=== PATIENT | male | born 1980 | race Caucasian/White ===

== ENCOUNTER 2022-01-09 10:33 | Day surgery (SDC) | payer OTHER ==
[2022-01-07 12:51] VITALS: BMI 28.8
[~2022-01-09 10:33] MED LIST: EPINEPHrine 0.3 MG in Ophthalmic Irrigation Solution 500 ML IRR SCH
[2022-01-09] MEDS ORDERED: Cyclopentolate W/ Phenylephrin 40 DROP/2 ML BOT ONE (10:50)
[2022-01-09] MEDS ORDERED: Phenylephrine 2.5% Ophth Soln 5 ML BOT ONE (10:58)
[2022-01-09] MEDS ORDERED: Cyclopentolate 1% Opth Drop 2 ML BOT ONE (11:04)
[2022-01-09] MEDS ORDERED: Midazolam HCl 2 mg/2 ml Vial ONE (12:22)
[2022-01-09] MEDS ORDERED: fentaNYL Citrate/PF 100 MCG/2 ML SYRINGE ONE (12:23)
[2022-01-09] MEDS ORDERED: Maxitrol 0.1% Opth Oint 3.5 GM TUBE ONE (12:30)
[2022-01-09] MEDS ORDERED: Glycopyrrolate 0.2 MG/ML 5 ML SYRINGE ONE (12:30)
[2022-01-09] MEDS ORDERED: CEFAZOLIN 1 GM VIAL ONE (12:30)
[2022-01-09] MEDS ORDERED: Bupivacaine 0.75% 10 ML VIAL ONE (12:30)
[2022-01-09] MEDS ORDERED: Dexamethasone 20 MG/5 ML VIAL ONE (12:30)
[2022-01-09] MEDS ORDERED: Triamcinolone 40 MG/ML VIAL ONE (12:30)
[2022-01-09] MEDS ORDERED: Lidocaine 4% PF 5 ML AMP ONE (12:30)
[2022-01-09] MEDS ORDERED: PROPOFOL 200 MG/20 ML VIAL ONE (12:30)
[2022-01-09] MEDS ORDERED: Lidocaine 1% PF 5 ML VIAL ONE ×2 (12:30)
[2022-01-09] MEDS ORDERED: Ondansetron PF 4 MG/2 ML Vial ONE (12:30)
== END 2022-01-09 16:13 | disposition home or self-care (01) ==
LOC: SDC 10:33
PROVIDERS: ATTEND Ophthalmology Retina Specialist
PROC: 08RJ3JZ Replacement of Right Lens with Synthetic Substitute, Percutaneous Approach (ICD-10-PCS; principal; 2022-01-09)
PROC: 08PJ3JZ Removal of Synthetic Substitute from Right Lens, Percutaneous Approach (ICD-10-PCS; principal; 2022-01-09)
DX: T85.22XA Displacement of intraocular lens, initial encounter (principal); Y77.3 Surgical instruments, materials and ophthalmic devices (including sutures) associated with adverse incidents
CPT/HCPCS: J0171; J0690; J1100; J2250; J2405; J2704; J3301; J3490; V2632